=== PATIENT | female | born 1950 ===

== ENCOUNTER → 2022-05-24 | Outpatient (CLI) | payer MEDICARE, OTHER ==
[~2022-05-24] VITALS: Ht 167.6 cm; Wt 62.0 kg
[~2022-05-24] MED LIST: HYDR-4527 PO; HYDR25TA84 PO; METO25 PO; SERT-158 PO; SERTRALINE HCL 50 MG TABLET PO SCH
[2022-05-24 13:21] VITALS: BP 113/71
== END | disposition home or self-care (01) ==
LOC: SRCNTR 13:06
PROVIDERS: ATTEND Hospitalist
DX: I10 Essential (primary) hypertension (principal); F32.A Depression, unspecified; F41.9 Anxiety disorder, unspecified; G47.00 Insomnia, unspecified; R00.2 Palpitations
CPT/HCPCS: G0463